=== PATIENT | female | born 1975 | race American Indian/Alaskan Native ===

== ENCOUNTER 2018-11-30 20:16 | Emergency (ER) | payer OTHER ==
--- NOTE | 2018-11-30 20:47 | Emergency Department Report ---
Blank Doc - Documentation Documentation: This is a 43-year-old female that presents with left leg pain and swelling. P loida was admitted with [place] for PE and DVT. Patient was discharged yesterday. Came to the ED for worsening left leg. This initial assessment/diagnostic orders/clinical plan/treatment(s) is/are subject to change based on patient's health status, clinical progression and re- assessment by fellow clinical providers in the ED. Further treatment and workup at subsequent clinical providers discretion. Patient/guardians urged not to elope from the ED as their condition may be serious if not clinically assessed and managed. Initial orders include: 1- Patient sent to MAIN ED for further evaluation and treatment 2- Labs 3- US Doppler 4- EKG 5- CXR
[2018-11-30 21:07] LABS: Basophils % (Auto) 0.8 % (0.0-1.8); Eosinophils # (Auto) 0.1 K/mm3 (0.0-0.4); Eosinophils % (Auto) 2.5 % (0.0-4.3); Hematocrit 41.5 % (30.3-42.9); Lymphocytes # (Auto) 1.1 K/mm3 (1.2-5.4); Lymphocytes % (Auto) 26.3 % (13.4-35.0); Mean Corpuscular HGB Conc 34 % (30-34); Mean Corpuscular Volume 91 fl (79-97); Monocytes # (Auto) 0.5 K/mm3 (0.0-0.8); Monocytes % (Auto) 10.5 % (0.0-7.3); Platelet Count 192 K/mm3 (140-440); Red Blood Count 4.58 M/mm3 (3.65-5.03); Red Cell Distribution Width 13.6 % (13.2-15.2)
[2018-11-30 21:16] LABS: INR 1.54 (0.87-1.13)
[2018-11-30 21:17] LABS: Partial Thromboplastin Time 29.7 Sec. (24.2-36.6)
[2018-11-30 21:29] LABS: BUN/Creatinine Ratio 4; Blood Urea Nitrogen 4 mg/dL (7-17); Calcium 8.7 mg/dL (8.4-10.2); Hemolysis Index 8
--- NOTE | 2018-11-30 22:03 | XRay Report ---
PROCEDURE: XR CHEST ROUTINE 2V TECHNIQUE: PA and lateral chest radiographs were obtained. HISTORY: Chest Pain COMPARISONS: None. FINDINGS: Heart: Normal. Mediastinum/Vessels: Normal. Lungs/Pleural space: Normal. Bony thorax: No acute osseous abnormality. IMPRESSION: Normal examination. This document is electronically signed by Fabrizio Olsen MD., November 30 2018 10:01:40 PM ET
--- NOTE | 2018-11-30 22:32 | Emergency Department Report ---
HPI - General Chief Complaint: Extremity Injury, Lower Time Seen by Provider: 11/30/18 20:39 - HPI HPI: 43-year-old Lebanese female presents to the emergency department with some swelling of the left lower extremity with known left leg DVT and also pulmonary embolism. The patient had left leg swelling started about one week ago. She went to [facility] where she had an ultrasound of the leg done that showed a "blood clot in my calf." She was having some shortness of breath at that time and had some type of imaging of the chest that showed a pulmonary embolism. The patient presents with her discharge paperwork confirming these diagnoses. She spent 2 days in that hospital as she was placed on IV heparin and then transition to Xarelto. She has been taking the anticoagulation compliantly. The patient came into the emergency department today because she says that her leg "swelled up again." She says that she had some shortness of breath earlier but that has since resolved. The patient thinks that the blood clots came on as she just recently gave about one month ago. ED Past Medical Hx - Past Medical History Previous Medical History?: Yes Hx Deep Vein Thrombosis: Yes Hx Tuberculosis: Yes Additional medical history: pneumonia, DVT, PE - Surgical History Past Surgical History?: Yes Additional Surgical History: left foot surgery for tumor removal, vaginal - Social History Smoking Status: Unknown if ever smoked Substance Use Type: None - Medications Home Medications: Home Medications Medication Instructions Recorded Confirmed Last Taken Type Albuterol Sulfate [Ventolin HFA] 2 puff IH Q4H PRN #1 hfa.aer.ad 07/23/13 Unknown Rx Azithromycin [Zithromax Z-ABBY] 250 mg PO DAILY #6 tab 07/23/13 Unknown Rx Prednisone 60 mg PO QDAY #15 tablet 07/23/13 Unknown Rx Benzonatate [Tessalon Perle] 200 mg PO TID PRN #20 capsule 07/24/13 Unknown Rx Cyclobenzaprine [Flexeril] 10 mg PO TID PRN #20 tablet 12/31/15 Unknown Rx Diclofenac Sodium 75 mg PO BID #20 tablet. 12/31/15 Unknown Rx ED Review of Systems ROS: Stated complaint: LEFT LEG BLOOD CLOT Other details as noted in HPI Comment: All other systems reviewed and negative Constitutional: denies: chills, fever Eyes: denies: eye pain, vision change ENT: denies: ear pain, throat pain Respiratory: shortness of breath. denies: cough Cardiovascular: edema. denies: chest pain, palpitations Gastrointestinal: denies: abdominal pain, vomiting Genitourinary: denies: dysuria, discharge Musculoskeletal: myalgia. denies: back pain Skin: denies: rash, lesions Neurological: denies: headache, weakness Physical Exam - Physical Exam Vital Signs: Vital Signs 11/30/18 11/30/18 20:40 22:16 Temperature 98.4 F Pulse Rate 73 Respiratory 20 18 Rate Blood Pressure 126/82 O2 Sat by Pulse 99 99 Oximetry Physical Exam: GENERAL: The patient is well-developed well-nourished. HEENT: Normocephalic. Atraumatic. Patient has moist mucous membranes. EYES: Extraocular motions are intact. Pupils are equal and reactive to light bilaterally. NECK: Supple. Trachea is midline. CHEST/LUNGS: Clear to auscultation. There is no respiratory distress noted. HEART/CARDIOVASCULAR: Regular. There is no tachycardia. There is no obvious murmur. ABDOMEN: Abdomen is soft, nontender. Patient has normal bowel sounds. There is no abdominal distention. SKIN: There is moderate left lower extremity swelling from the knee distally when compared with the right side. NEURO: The patient is awake, alert, and oriented. The patient is cooperative. The patient has no focal neurologic deficits. The patient has normal speech. MUSCULOSKELETAL: There is no tenderness or deformity. There is no limitation range of motion. +2 over 4 dorsalis pedis pulse of the left foot. ED Course Vital Signs 11/30/18 11/30/18 20:40 22:16 Temperature 98.4 F Pulse Rate 73 Respiratory 20 18 Rate Blood Pressure 126/82 O2 Sat by Pulse 99 99 Oximetry ED Medical Decision Making - Lab Data Result diagrams: 11/30/18 20:52 11/30/18 20:52 - Radiology Data Radiology results: image reviewed interpreted by me: Chest x-ray does not show any pneumothorax, pleural effusion, pneumonia or o bvious focal consolidation. - Medical Decision Making This patient presents to the emergency department for reevaluation of left leg swelling. However the patient has a known left lower extremity DVT and pulmonary embolism. The discharge instructions from [facility] due to confirmed the DVT and PE but cannot say the size or location. The patient does have some nonpitting swelling of the left distal lower extremity when compared to the right but she does appear to be neurovascularly intact. She says that she had some shortness of breath and/or back pain earlier in the day but that has resolved. Patient's labs have been unremarkable including a CBC, BMP, troponin. Chest x-ray did not show any focal consolidation, pneumothorax, pneumonia, pleural effusions, or any other acute process. Her labs have been unremarkable including no fever, no hypoxia or tachypnea or tachycardia. They are essentially normal. The patient is taking her anticoagulation and has been compliant. I recommended a CT angiography of the chest to evaluate the pulmonary emboli but the patient says that she is no longer having any shortness of breath or back pain and does not want this done at this time. I am unable to get a venous Doppler ultrasound this evening the patient has been given a prescription/motor to get the Doppler ultrasound done tomorrow morning in the [facility] imaging portion of the hospital. She has a known DVT but if it is growing or found to be extensive, a vascular consult thrombectomy could be considered. Otherwise she will remain on the anticoagulation and follow up with her primary care physician. She will return to the ER immediately with any development of chest pain, shortness of breath or with any acute distress. - Differential Diagnosis DVT, PE, pneumonia, bronchitis, venous stasis Critical Care Time: No Critical care attestation.: If time is entered above; I have spent that time in minutes in the direct care of this critically ill patient, excluding procedure time. ED Disposition Clinical Impression: History of DVT of lower extremity Pulmonary embolism Qualifiers: Pulmonary embolism type: unspecified Chronicity: unspecified Acute cor pulmonale presence: without acute cor pulmonale Qualified Code(s): I26.99 - Other pulmonary embolism without acute cor pulmonale Disposition: DC-01 TO HOME OR SELFCARE Is pt being admited?: No Condition: Stable Instructions: Pulmonary Embolism (GEN), Deep Venous Thrombosis (ED) Additional Instructions: Please follow-up with your primary care physician. I am giving you an order to return to the outpatient imaging center tomorrow for a repeat left leg ultrasound. Continue taking your Xarelto (anticoagulation. Return to the emergency department with any worsening of your symptoms or any acute distress. Referrals: Primary Care Physician, Your [Other] - [facility] Time of Disposition: 22:33
[2018-11-30 23:15] VITALS: BP 130/84
== END 2018-11-30 22:42 | disposition home or self-care (01) ==
LOC: ED 20:16
DX: I26.99 Other pulmonary embolism without acute cor pulmonale (principal); Z79.899 Other long term (current) drug therapy; Z88.6 Allergy status to analgesic agent; Z86.718 Personal history of other venous thrombosis and embolism
CPT/HCPCS: 36415; 71046; 80048; 84484; 84703; 85025; 85610; 85730; 93005; 93010

== ENCOUNTER 2019-10-01 18:09 | Observation (INO) | payer SELFPAY ==
--- NOTE | 2019-10-01 19:05 | Event Note ---
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 Further treatment and workup at subsequent clinical providers discretion. Patient/guardian urged not to elope from the ED as their condition may be serious if not clinically assessed and managed. Initial orders include: labs, EKG, UA, CT head
--- NOTE | 2019-10-01 19:51 | Cat Scan Report ---
CT HEAD WITHOUT CONTRAST INDICATION / CLINICAL INFORMATION: syncope, hit head, tingling left arm. TECHNIQUE: All CT scans at this location are performed using CT dose reduction for ALARA by means of automated e xposure control. COMPARISON: None available. FINDINGS: HEMORRHAGE: No evidence of intracranial hemorrhage or extra-axial fluid collection. EXTRA-AXIAL SPACES: Cortical sulci, sylvian fissures and basilar cisterns have an unremarkable appear ance. VENTRICULAR SYSTEM: The ventricular system is of normal size and configuration. CEREBRAL PARENCHYMA: No areas of abnormal brain parenchymal attenuation are identified. There is no i ndication of recent infarction. MIDLINE SHIFT OR HERNIATION: There is no mass effect. CEREBELLUM / BRAINSTEM: Brainstem and cerebellum have an unremarkable appearance. INTRACRANIAL VESSELS:No abnormalities are identified on this noncontrast head CT. ORBITS: visualized portions of the orbits have an unremarkable appearance. SOFT TISSUES of HEAD: No significant abnormality. CALVARIUM: Evaluation of bone windows reveals no abnormalities. PARANASAL SINUSES / MASTOID AIR CELLS: Paranasal sinuses are free from inflammatory mucosal disease. Mastoid air cells are normally pneumatized. IMPRESSION: 1. Normal head CT without contrast. Signer Name: Agustin Villalobos MD Signed: 10/01/2019 7:46 PM Workstation Name: [id number]
[2019-10-01] MEDS ORDERED: ACETAMINOPHEN 500 MG TAB PO ONE (20:40)
[2019-10-01] MEDS ORDERED: SODIUM CHLORIDE 0.9% 1000 ML 1,000 ML IV ONE (20:40)
--- NOTE | 2019-10-01 20:43 | Emergency Department Report ---
ED General Adult HPI - General Chief complaint: Syncope Stated complaint: PASSED OUT AT WORK YESTERDAY Time Seen by Provider: 10/01/19 19:02 Source: patient, RN notes reviewed, old records reviewed Mode of arrival: Ambulatory Limitations: No Limitations - History of Present Illness Initial comments: The patient is a 44-year-old female. The patient is not known to myself previously. She has a primary care doctor but cannot recall their name. She has a history of left lower extremity DVT and pulmonary embolism in 2019, and is supposed to be on systemic anticoagulation; Eliquis. 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 Prior to the event, she was not having physical pain, but she felt hot. On review of systems, she endorses left upper extremity numbness, intermittent, present for 4 days. She also endorses bilateral calf cramping and discomfort. She has an occipital headache from hitting her head. Prior to the event of syncope, did not have headache, neck pain, chest pain, abdominal pain, or e xertional shortness of breath. Apparently her DVT and pulmonary embolism are related to . -: Sudden Location: head, left, right, lower extremity Quality: aching Consistency: constant Improves with: rest Worsens with: movement - Related Data Previous Rx's Medication Instructions Recorded Last Taken Type Albuterol Sulfate [Ventolin HFA] 2 puff IH Q4H PRN #1 hfa.aer.ad 07/23/13 Unknown Rx Azithromycin [Zithromax Z-ABBY] 250 mg PO DAILY #6 tab 07/23/13 Unknown Rx Prednisone 60 mg PO QDAY #15 tablet 07/23/13 Unknown Rx Benzonatate [Tessalon Perle] 200 mg PO TID PRN #20 capsule 07/24/13 Unknown Rx Cyclobenzaprine [Flexeril] 10 mg PO TID PRN #20 tablet 12/31/15 Unknown Rx Diclofenac Sodium 75 mg PO BID #20 janice. 12/31/15 Unknown Rx Allergies Allergy/AdvReac Type Severity Reaction Status Date / Time codeine Allergy Intermediate Hives Verified 07/23/13 23:07 ED Review of Systems ROS: Stated complaint: PASSED OUT AT WORK YESTERDAY Other details as noted in HPI Constitutional: malaise. denies: fever Eyes: denies: eye discharge, vision change ENT: denies: congestion Respiratory: denies: cough Cardiovascular: syncope. denies: chest pain Gastrointestinal: denies: abdominal pain, hematemesis, melena, hematochezia Genitourinary: denies: dysuria Musculoskeletal: arthralgia, myalgia Skin: denies: lesions Neurological: headache, numbness, paresthesias ED Past Medical Hx - Past Medical History Previous Medical History?: Yes Hx Deep Vein Thrombosis: Yes Hx Tuberculosis: Yes Additional medical history: pneumonia, DVT, PE - Surgical History Past Surgical History?: No Additional Surgical History: left foot surgery for tumor removal, vaginal - Social History Smoking Status: Never Smoker Substance Use Type: None - Medications Home Medications: Home Medications Medication Instructions Recorded Confirmed Last Taken Type Albuterol Sulfate [Ventolin HFA] 2 puff IH Q4H PRN #1 hfa.aer.ad 07/23/13 Unknown Rx Azithromycin [Zithromax Z-ABBY] 250 mg PO DAILY #6 tab 07/23/13 Unknown Rx Prednisone 60 mg PO QDAY #15 tablet 07/23/13 Unknown Rx Benzonatate [Tessalon Perle] 200 mg PO TID PRN #20 capsule 07/24/13 Unknown Rx Cyclobenzaprine [Flexeril] 10 mg PO TID PRN #20 tablet 12/31/15 Unknown Rx Diclofenac Sodium 75 mg PO BID #20 tablet. 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 Absent: nystagmus - ENT ENT exam: Present: normal exam, normal orophraynx, mucous membranes moist, normal external ear exam - Neck Neck exam: Present: normal inspection, full ROM. Absent: tenderness, meningismus - Respiratory Respiratory exam: Present: normal lung sounds bilaterally. Absent: respiratory distress - Cardiovascular Cardiovascular Exam: Present: normal rhythm, bradycardia, normal heart sounds. Absent: systolic murmur, diastolic murmur, rubs, gallop - GI/Abdominal GI/Abdominal exam: Present: soft. Absent: distended, tenderness, guarding, rebound, rigid, pulsatile mass - Extremities Exam Extremities exam: Present: normal inspection, full ROM, other (2+ pulses noted in the bilateral upper and lower extremities. There is no palpable cord. negative Homans sign. Muscular compartments are soft. The pelvis is stable.). Absent: pedal edema, calf tenderness - Back Exam Back exam: Present: normal inspection, full ROM. Absent: tenderness, CVA tenderness (R), CVA tenderness (L), paraspinal tenderness, vertebral tenderness - Neurological Exam Neurological exam: Present: alert, oriented X3, other (There is no facial droop. The tongue is midline. Extraocular movements are intact bilaterally. There is 5 out of 5 strength in bilateral upper and lower extremities. Sensation is intact to light touch bilateral upper and lower extremities. There is no past- pointing. There is no pronator drift. There is normal lcit-qu-cxme. There is a normal gait.). Absent: motor sensory deficit - Psychiatric Psychiatric exam: Present: normal affect, normal mood - Skin Skin exam: Present: warm, dry, intact, normal color. Absent: rash ED Course Vital Signs 10/01/19 10/01/19 10/01/19 18:27 19:03 20:00 Temperature 98.2 F 98.2 F Pulse Rate 65 59 L 67 Respiratory 18 18 16 Rate Blood Pressure 148/94 148/94 119/71 O2 Sat by Pulse 100 100 99 Oximetry 10/01/19 10/01/19 10/01/19 20:15 20:30 20:45 Temperature Pulse Rate 66 66 61 Respiratory 9 L 12 14 Rate Blood Pressure 113/74 118/92 131/81 O2 Sat by Pulse 99 100 Oximetry 10/01/19 10/01/19 10/01/19 21:00 21:15 21:30 Temperature Pulse Rate 59 L 57 L 59 L Respiratory 15 12 13 Rate Blood Pressure 130/79 131/87 121/86 O2 Sat by Pulse 99 100 99 Oximetry 10/01/19 21:45 Temperature Pulse Rate 56 L Respiratory 16 Rate Blood Pressure 112/78 O2 Sat by Pulse 97 Oximetry - Reevaluation(s) Reevaluation #1: 10/01/19 21:20 Differential diagnosis, including but not limited to: Orthostasis, vagal event, structural cardiac disease, pulmonary embolism, peripheral neuropathy, TIA, radiculopathy, subacute stroke, intracranial injury, concussion Assessment and plan: 44-year-old female with a complaint of sudden unprovoked lo ss of consciousness yesterday, and 3 to 4 days of left upper extremity subjective decrease in sensation. She is afebrile with reassuring vital signs and clinically sober at this time. She has a GCS of 15, with NIH score of 0. She is currently not tachycardic, tachypneic or hypoxic Her extremity exam is not suggestive of DVT. Noncontrast CT scan of the brain negative for acute disease. There is no midline cervical spine pain or tenderness. Screening laboratory studies pending, patient will likely need to be admitted to the medical service for further evaluation. Not a TPA candidate given more than 4.5 hours of symptoms, and NIH score of 0 at this time. Does not need emergent endovascular imaging at this time, as her examination is not suggestive of a large vessel occlusion. We will treat her with fluids and Tylenol. Discussed plan of care with patient who verbalizes understanding. Reevaluation #2: 10/01/19 22:12 Patient resting comfortably, and in no acute distress. D-dimer negative. Remainder of laboratory studies are fairly unremarkable. Given complaint of left arm tingling and sensory change, unprovoked syncope, patient to be admitted to the medical service for further evaluation and management. Presented to hospital physician, Dr. Ribeiro who accepts to medical service ED Medical Decision Making - Lab Data Result diagrams: 10/01/19 20:21 10/01/19 20:21 Vital Signs 10/01/19 19:03 Temperature 98.2 F Pulse Rate 59 L Respiratory 18 Rate Blood Pressure 148/94 O2 Sat by Pulse 100 Oximetry Lab Results 10/01/19 10/01/19 Range/Units 20:21 20:21 WBC 3.6 L (4.5-11.0) K/mm3 RBC 4.33 (3.65-5.03) M/mm3 Hgb 14.1 (10.1-14.3) gm/dl Hct 41.2 (30.3-42.9) % MCV 95 (79-97) fl MCH 33 H (28-32) pg MCHC 34 (30-34) % RDW 15.3 H (13.2-15.2) % Plt Count 194 (140-440) K/mm3 Lymph % (Auto) 30.0 (13.4-35.0) % [place] % (Auto) 11.7 H (0.0-7.3) % Eos % (Auto) 1.6 (0.0-4.3) % Baso % (Auto) 1.1 (0.0-1.8) % Lymph # 1.1 L (1.2-5.4) K/mm3 [place] # 0.4 (0.0-0.8) K/mm3 Eos # 0.1 (0.0-0.4) K/mm3 Baso # 0.0 (0.0-0.1) K/mm3 Add Manual Diff Complete Seg Neutrophils % 55.6 (40.0-70.0) % Nucleated RBC % Not Reportable Seg Neutrophils # 2.1 (1.8-7.7) K/mm3 WBC Morphology Not Reportable Hypersegmented Neuts Not Reportable Hyposegmented Neuts Not Reportable Hypogranular Neuts Not Reportable Smudge Cells Not Reportable Toxic Granulation Not Reportable Toxic Vacuolation Not Reportable Dohle Bodies Not Reportable Pelger-Huet Anomaly Not Reportable Triston Rods Not Reportable Platelet Estimate Not Reportable Clumped Platelets Not Reportable Plt Clumps, EDTA Not Reportable Large Platelets Not Reportable Giant Platelets Not Reportable Platelet Satelliting Not Reportable Plt Morphology Comment Not Reportable RBC Morphology Not Reportable Dimorphic RBCs Not Reportable Polychromasia Not Reportable Hypochromasia Not Reportable Poikilocytosis Not Reportable Anisocytosis Not Reportable Microcytosis Not Reportable Macrocytosis Not Reportable Spherocytes Not Reportable Pappenheimer Bodies Not Reportable Sickle Cells Not Reportable Target Cells Not Reportable Tear Drop Cells Not Reportable Ovalocytes Not Reportable Helmet Cells Not Reportable Pena-Panguitch Bodies Not Reportable Jamul Rings Not Reportable Sibley Cells Not Reportable Bite Cells Not Reportable Crenated Cell Not Reportable Elliptocytes Not Reportable Acanthocytes (Spur) Not Reportable Rouleaux Not Reportable Hemoglobin C Crystals Not Reportable Schistocytes Not Reportable Malaria parasites Not Reportable Garett Bodies Not Reportable Hem Pathologist Commnt Not Reportable Sodium 136 L (137-145) mmol/L Potassium 3.9 (3.6-5.0) mmol/L Chloride 101.3 (98-107) mmol/L Carbon Dioxide 22 (22-30) mmol/L Anion Gap 17 mmol/L BUN 11 (7-17) mg/dL Creatinine 0.9 (0.7-1.2) mg/dL Estimated GFR > 60 ml/min BUN/Creatinine Ratio 12 % Glucose 95 (65-100) mg/dL Calcium 9.0 (8.4-10.2) mg/dL Phosphorus 2.30 L (2.5-4.5) mg/dL Magnesium 2.00 (1.7-2.3) mg/dL Total Bilirubin 0.50 (0.1-1.2) mg/dL AST 25 (5-40) units/L ALT 14 (7-56) units/L Alkaline Phosphatase 71 (35-129) units/L Total Creatine Kinase 102 (30-135) units/L Troponin T < 0.010 (0.00-0.029) ng/mL Total Protein 7.4 (6.3-8.2) g/dL Albumin 4.0 (3.9-5) g/dL Albumin/Globulin Ratio 1.2 % - EKG Data -: EKG Interpreted by Me EKG shows normal: sinus rhythm Rate: bradycardia - EKG Data 10/01/19 21:22 The EKG today shows a sinus rhythm, 68 bpm, normal axis, QTC 461 ms, there is some motion artifact. The EKG is abnormal, it is not consistent with ST elevation myocardial infarction. The EKG today appears to be grossly unchanged from prior EKG from November 2018. - Radiology Data Radiology results: pending, report reviewed, image reviewed Noncontrast CT scan of the brain is negative for acute disease Critical care attestation.: If time is entered above; I have spent that time in minutes in the direct care of this critically ill patient, excluding procedure time. ED Disposition Clinical Impression: Left arm numbness, Syncope, Noncompliance, History of pulmonary embolus (PE), History of DVT (deep vein thrombosis) Disposition: 09 OP ADMIT IP TO THIS HOSP Is pt being admited?: Yes Does the pt Need Aspirin: Yes Condition: Stable Instructions: Syncope (ED) Referrals: PRIMARY CARE,MD [Primary Care Provider] - 3-5 Days
[2019-10-01 20:44] LABS: Hematocrit 41.2 % (30.3-42.9); Hemoglobin 14.1 gm/dl (10.1-14.3); Mean Corpuscular HGB Conc 34 % (30-34); Mean Corpuscular Volume 95 fl (79-97); Platelet Count 194 K/mm3 (140-440); Red Blood Count 4.33 M/mm3 (3.65-5.03); Red Cell Distribution Width 15.3 % (13.2-15.2)
[2019-10-01 20:52] LABS: Basophils % (Auto) 1.1 % (0.0-1.8); Eosinophils # (Auto) 0.1 K/mm3 (0.0-0.4); Eosinophils % (Auto) 1.6 % (0.0-4.3); Lymphocytes # (Auto) 1.1 K/mm3 (1.2-5.4); Monocytes # (Auto) 0.4 K/mm3 (0.0-0.8); Monocytes % (Auto) 11.7 % (0.0-7.3)
[2019-10-01 21:06] LABS: Alanine Aminotransferase 14 units/L (7-56); BUN/Creatinine Ratio 12; Blood Urea Nitrogen 11 mg/dL (7-17); Hemolysis Index 10
[2019-10-01 21:41] LABS: INR 1.08 (0.87-1.13); Partial Thromboplastin Time 25.8 Sec. (24.2-36.6)
[2019-10-01] MEDS ORDERED: ASPIRIN 81 MG TAB CHEW PO ONE (22:15)
[2019-10-01] MEDS ORDERED: PROMETHAZINE 25 MG RECT SUPP PR PRN (22:58)
[2019-10-01] MEDS ORDERED: ACETAMINOPHEN 325 MG TAB PO PRN ×2 (22:58)
[2019-10-01] MEDS ORDERED: MAGNESIUM HYDROXIDE (MOM) ORAL LIQD UDC PO PRN (22:58)
[2019-10-01] MEDS ORDERED: ONDANSETRON 4 MG/2 ML INJ IV PRN ×2 (22:58)
[2019-10-01] MEDS ORDERED: METOCLOPRAMIDE 10 MG TAB PO PRN (22:58)
[2019-10-01] MEDS ORDERED: MORPHINE 2 MG/1 ML INJ IV PRN (22:58)
--- NOTE | 2019-10-01 23:10 | History and Physical Report ---
History of Present Illness Date of examination: 10/01/19 Date of admission: 10/01/2019 Chief complaint: Left arm numbness Syncope History of present illness: 44-year-old female with known history of DVT and pulmonary embolism in 2019 and who is supposed to be on Eliquis for anticoagulation presenting to the emergency room today complaining of loss of consciousness syncope at work sometime yesterday. Prior to the syncope and loss of consciousness she indicates she was feeling hot. She later presents in the emergency room today indicating that she has been having numbness in the left upper extremity. Numbness has been intermittent. She denies any difficulty with speech denies any difficulty with swallowing. No chest pain or shortness of breath, no fever or chills, no nausea or vomiting. Patient admits that she discontinued her anticoagulation without any specific instruction from her physician. Work-up in the emergency room so far has been negative however patient indicates that numbness in the left upper extremity has been on and off. Past History Past Medical History: other (H/OmDVT/PE, Pneumonia and TB in the past.) Past Surgical History: Other (Left foot surgery) Social history: smoking (Smokes tobacco occasionally.) Family history: diabetes, hypertension Medications and Allergies Allergies Allergy/AdvReac Type Severity Reaction Status Date / Time codeine Allergy Intermediate Hives Verified 07/23/13 23:07 Home Medications Medication Instructions Recorded Confirmed Last Taken Type Albuterol Sulfate [Ventolin HFA] 2 puff IH Q4H PRN #1 hfa.aer.ad 07/23/13 Unknown Rx Azithromycin [Zithromax Z-ABBY] 250 mg PO DAILY #6 tab 07/23/13 Unknown Rx Prednisone 60 mg PO QDAY #15 tablet 07/23/13 Unknown Rx Benzonatate [Tessalon Perle] 200 mg PO TID PRN #20 capsule 07/24/13 Unknown Rx Cyclobenzaprine [Flexeril] 10 mg PO TID PRN #20 tablet 12/31/15 Unknown Rx Diclofenac Sodium 75 mg PO BID #20 tablet. 12/31/15 Unknown Rx Review of Systems Constitutional: no fever, no chills Cardiovascular: no chest pain, no palpitations Respiratory: no cough, no shortness of breath Gastrointestinal: no nausea, no vomiting, no diarrhea Genitourinary Female: no dysuria, no hematuria Musculoskeletal: no neck pain, no low back pain Integumentary: no rash, no pruritis Neurological: numbness (left arm), syncope Exam - Constitutional Vitals: Temp Pulse Resp BP Pulse Ox 98.2 F 56 L 16 112/78 97 10/01/19 19:03 10/01/19 21:45 10/01/19 21:45 10/01/19 21:45 10/01/19 21:45 General appearance: Present: no acute distress, well-nourished - EENT Eyes: Present: PERRL, EOM intact ENT: hearing intact, clear oral mucosa, dentition normal - Neck Neck: Present: supple, normal ROM - Respiratory Respiratory effort: normal Respiratory: bilateral: CTA - Cardiovascular Rhythm: regular Heart Sounds: Present: S1 & S2 - Extremities Extremities: no ischemia, pulses intact, pulses symmetrical, No edema, Full ROM Peripheral Pulses: within normal limits - Abdominal General gastrointestinal: Present: soft, non-tender, non-distended - Integumentary Integumentary: Present: clear, warm, dry - Musculoskeletal Musculoskeletal: strength equal bilaterally - Psychiatric Psychiatric: appropriate mood/affect, intact judgment & insight, cooperative - Neurologic Neurologic: CNII-XII intact, moves all extremities Results - Labs CBC & Chem 7: 10/01/19 20:21 10/01/19 20:21 Labs: Abnormal lab results 10/01/19 10/01/19 Range/Units 20:21 20:21 WBC 3.6 L (4.5-11.0) K/mm3 MCH 33 H (28-32) pg RDW 15.3 H (13.2-15.2) % Merrick % (Auto) 11.7 H (0.0-7.3) % Lymph # 1.1 L (1.2-5.4) K/mm3 Sodium 136 L (137-145) mmol/L Phosphorus 2.30 L (2.5-4.5) mg/dL Assessment and Plan - Patient Problems (1) Left arm numbness Current Visit: Yes Status: Acute Plan to address problem: Etiology is unclear however patient will be worked up for TIA versus CVA. We will schedule patient for MRI of the brain and carotid Doppler. We will place a consult to neurology for further evaluation and recommendation. We will have patient be placed on daily aspirin. (2) Syncope Current Visit: Yes Status: Acute Plan to address problem: Etiology is unclear however patient will be monitored on telemetry. She will also be worked up for TIA versus CVA. We await results of carotid Doppler and echocardiogram. (3) Noncompliance Current Visit: Yes Status: Acute Plan to address problem: Patient is supposed to be on anticoagulation for history of DVT and pulmonary embolism. However she discontinued anticoagulation sometime last month without any specific instruction from a physician. Compliance with medication has been encouraged. (4) DVT prophylaxis Current Visit: Yes Status: Acute Plan to address problem: Patient placed on subcutaneous heparin. (5) Full code status Current Visit: Yes Status: Acute
[2019-10-02] MEDS ORDERED: HEPARIN 5,000 UNIT/1 ML VIAL SUB-Q SCH (06:00)
[2019-10-02 08:57] LABS: Basophils % (Auto) 0.9 % (0.0-1.8); Eosinophils # (Auto) 0.1 K/mm3 (0.0-0.4); Eosinophils % (Auto) 2.4 % (0.0-4.3); Hematocrit 38.7 % (30.3-42.9); Hemoglobin 13.2 gm/dl (10.1-14.3); Lymphocytes # (Auto) 1.2 K/mm3 (1.2-5.4); Lymphocytes % (Auto) 40.6 % (13.4-35.0); Mean Corpuscular HGB Conc 34 % (30-34); Mean Corpuscular Volume 95 fl (79-97); Monocytes # (Auto) 0.4 K/mm3 (0.0-0.8); Monocytes % (Auto) 12.6 % (0.0-7.3); Platelet Count 172 K/mm3 (140-440); Red Blood Count 4.08 M/mm3 (3.65-5.03); Red Cell Distribution Width 15.3 % (13.2-15.2)
[2019-10-02 09:07] LABS: INR 1.13 (0.87-1.13)
[2019-10-02 09:08] LABS: Partial Thromboplastin Time 27.1 Sec. (24.2-36.6)
[2019-10-02 09:15] LABS: BUN/Creatinine Ratio 10; Blood Urea Nitrogen 8 mg/dL (7-17); Calcium 8.3 mg/dL (8.4-10.2); Chol/HDL Ratio 3.44 %; HDL Cholesterol 67 mg/dL (40-59); Hemolysis Index 2; LDL Cholesterol,Direct 167 mg/dL (50-130)
--- NOTE | 2019-10-02 09:52 | Magnetic Resonance Report ---
MRI BRAIN WITHOUT CONTRAST INDICATION / CLINICAL INFORMATION: MAIN: stroke, LT ARM WEAKNESS PATIENT HAS MARSH RT EAR, UABLE TO REMOVE.. TECHNIQUE: Multisequence, multiplanar images were obtained. COMPARISON: CT head dated 10/01/2019 FINDINGS: CEREBRAL and CEREBELLAR HEMISPHERES: No evidence of mass or mass effect. No midline shift. No acute hemorrhage. No diffusion restriction to suggest acute infarct. No extra-axial fluid collection. VENTRICLES: Normal in size and configuration for age. VISUALIZED ORBITS: No significant abnormality. VISUALIZED PARANASAL SINUSES: No significant abnormality. ADDITIONAL FINDINGS: None. IMPRESSION: 1. No acute intracranial abnormality. Signer Name: Nitin Valles Jr, MD Signed: 10/02/2019 9:48 AM Workstation Name: [id number]
[2019-10-02] MEDS ORDERED: ASPIRIN 325 MG TAB PO SCH (10:00)
--- NOTE | 2019-10-02 13:07 | Discharge Summary ---
Providers - Providers Date of Admission: 10/01/19 22:15 Attending physician: ROBERTO CARLOS COY MD 10/01/19 22:59 Consult to Dietitian/Nutrition [CONS] Routine Physician Instructions: Reason For Exam: Reason for Consult: Nutrition Recommendations Reason for Consult: Diet education Occupational Therapy Evaluate and Treat [CONS] Routine Comment: Reason For Exam: Neuro deficits Physical Therapy Evaluation and Treat [CONS] Routine Comment: Reason For Exam: Neuro deficits 10/01/19 23:02 Speech Therapy Evaluation and Treat [CONS] Routine Reason For Exam: swallow eval 10/02/19 09:13 Consult to Physician [CONS] Routine Comment: Consulting Provider: AGAPITO SAHU Physician Instructions: Reason For Exam: cva Primary care physician: PROFESSOR OF LITERACY Hospitalization Condition: Stable Hospital course: 44-year-old man who presents to the hospital complaining of syncope. She reported that she had not eaten anything or drink anything and was standing for a prolonged amount of time at work. She had complained of some right upper extremity numbness in association with her syncopal episode. But by the time I saw the patient it had resolved. Patient had extensive work-up which included CT head, brain MRI, CT angiogram chest and lower extremity Dopplers, carotid Dopplers which were all unrevealing. The patient reported history of DVT in the left lower extremity in the past. She was concerned about it patient was reassured that testing for clots were all negative. She also had an echocardiogram which showed preserved EF and no si gnificant findings to suggest source of syncope. Patient was advised to advise prolonged standing, she was advised to avoid going to work without eating or drinking anything like she did this time. She verbalized understanding Preventative health counseling performed for 17 minutes -She was started on a statin for hyperlipidemia Diagnosis Transient autonomic imbalance Syncope Dehydration -Hyperlipidemia Disposition: DC-01 TO HOME OR SELFCARE Time spent for discharge: 35 minutes Core Measure Documentation - Palliative Care Palliative Care/ Comfort Measures: Not Applicable - Core Measures Any of the following diagnoses?: none Exam - Constitutional Vitals: Temp Pulse Resp BP Pulse Ox 98.0 F 61 17 100/56 98 10/02/19 05:21 10/02/19 05:21 10/02/19 05:21 10/02/19 05:21 10/02/19 05:21 General appearance: Present: no acute distress, well-nourished - EENT Eyes: Present: PERRL ENT: hearing intact, clear oral mucosa - Neck Neck: Present: supple, normal ROM - Respiratory Respiratory effort: normal Respiratory: bilateral: CTA - Cardiovascular Heart Sounds: Present: S1 & S2. Absent: rub, click - Extremities Extremities: pulses symmetrical, No edema Peripheral Pulses: within normal limits - Abdominal General gastrointestinal: Present: soft, non-tender, non-distended, normal bowel sounds Female genitourinary: Present: normal - Integumentary Integumentary: Present: clear, warm, dry - Musculoskeletal Musculoskeletal: gait normal, strength equal bilaterally - Psychiatric Psychiatric: appropriate mood/affect, intact judgment & insight - Neurologic Neurologic: CNII-XII intact, moves all extremities Plan Follow up with: PRIMARY CARE, [Primary Care Provider] - 3-5 Days Forms: Work/School Release Form Prescriptions: Pravastatin [Pravachol] 20 mg PO QHS #90 tablet
[2019-10-02 13:29] VITALS: BP 109/76
--- NOTE | 2019-10-02 15:02 | Vascular Lab Report ---
. DUPLEX DOPPLER LOWER EXTREMITY VEINS, BILATERAL INDICATION: Bilateral lower extremity edema and pain. TECHNIQUE: Duplex doppler imaging was performed through the veins of both lower extremities using ve nous compression and other maneuvers. COMPARISON: No relevant prior imaging study available. FINDINGS: Right Common femoral vein: Negative. Right Superficial femoral vein: Negative. Right Popliteal vein: Negative. Right Calf veins: Negative. Left Common femoral vein: Negative. Left Superficial femoral vein: Negative. Left Popliteal vein: Negative. Left Calf veins: Negative. Additional findings: None.. IMPRESSION: No sonographic evidence for DVT in either lower extremity. Signer Name: Nitin Valles Jr, MD Signed: 10/02/2019 2:58 PM Workstation Name: [id number]
--- NOTE | 2019-10-02 15:12 | Consultation ---
History of Present Illness Consult date: 10/02/19 Reason for Consult: Syncope Chief complaint: Syncope, left arm paresthesias History of present illness: Patient is a 44-year-old woman with history of DVT with PE, history of TB. She was previously taking Xarelto, however stopped it prematurely. She was supposed to be taking Xarelto for total of 9 months, however stopped it on her own after 3 to 4 months. She stopped it about 2 months ago. She states that she had a DVT and PE develop shortly after giving . 2 days ago while at work, the patient states that she had been standing up for about 1 hour, and began to feel very hot. After this, the patient passed out. She lost consciousness for about 1 to 2 minutes. No loss of bowel or bladder control, no convulsions, and no tongue biting were noted during the event. Patient woke up, and went home. She states that she had not eaten much at all during the day prior to that event. She then came to [facility] the next day for evaluation. Glucose levels were not checked after the event. She states that she began experiencing mild paresthesias in the left arm after the event, which resolved by today. Past History Past Medical History: other (H/OmDVT/PE, Pneumonia and TB in the past.) Past Surgical History: Other (Left foot surgery) Social history: smoking (Smokes tobacco occasionally.) Family history: diabetes, hypertension Medications and Allergies Allergies Allergy/AdvReac Type Severity Reaction Status Date / Time codeine Allergy Intermediate Hives Verified 07/23/13 23:07 Home Medications Medication Instructions Recorded Confirmed Last Taken Type Pravastatin [Pravachol] 20 mg PO QHS #90 tablet 10/02/19 Unknown Rx Active Meds: Active Medications Acetaminophen (Tylenol) 650 mg PO Q4H PRN PRN Reason: Pain MILD(1-3)/Fever >100.5/CHAUHAN Aspirin (Aspirin) 325 mg PO QDAY [facility] Last Admin: 10/02/19 10:27 Dose: 325 mg Documented by: Bisacodyl (Dulcolax) 10 mg NV QDAY PRN PRN Reason: Constipation Heparin Sodium (Porcine) (Heparin) 5,000 unit SUB-Q Q8HR [facility] Last Admin: 10/02/19 06:12 Dose: 5,000 unit Documented by: Magnesium Hydroxide (Milk Of Magnesia) 30 ml PO Q4H PRN PRN Reason: Constipation Metoclopramide HCl (Reglan) 10 mg PO Q6H PRN PRN Reason: Nausea And Vomiting Morphine Sulfate (Morphine) 2 mg IV Q4H PRN PRN Reason: Pain, Moderate (4-6) Ondansetron HCl (Zofran) 4 mg IV Q8H PRN PRN Reason: Nausea And Vomiting Promethazine HCl (Phenergan) 25 mg NV Q6H PRN PRN Reason: Nausea And Vomiting Sodium Chloride (Sodium Chloride Flush Syringe 10 Ml) 10 ml IV BID [place] Last Admin: 10/02/19 10:27 Dose: 10 ml Documented by: Sodium Chloride (Sodium Chloride Flush Syringe 10 Ml) 10 ml IV PRN PRN PRN Reason: LINE FLUSH Review of Systems All systems: negative Neurological: parathesias, syncope Physical Examination - Vital Signs Vital Signs: Vital Signs Temp Pulse Resp BP Pulse Ox 98.2 F 65 18 148/94 100 10/01/19 18:27 10/01/19 18:27 10/01/19 18:27 10/01/19 18:27 10/01/19 18:27 - Physical Exam Narrative exam: Patient is alert, awake, oriented x4, follows complex commands. PERRL, EOMI, VF F, tongue midline, bilaterally intact to LT, no facial weakness noted. 5/5 strength in all extremities. Bilaterally intact light touch. Bilaterally intact to FTN and HTS. 2+ reflexes throughout. No dysarthria or aphasia noted. - Constitutional General appearance: comfortable - EENT EENT: Present: ATNC, PERRL, mucous membranes moist, hearing intact, vision intact - Respiratory Respiratory: Present: lungs clear, normal breath sounds - Cardiovascular Cardiovascular: Present: regular rate, normal S1, normal S2 Extremities: Present: no clubbing, cyanosis, no inflammation - Gastrointestinal Gastrointestinal: Present: normoactive bowel sounds, soft, non-tender - Integumentary Integumentary: Present: normal - Musculoskeletal Musculoskeletal: Present: no fluid collection, no pain - Psychiatric Psychiatric: Present: mood/affect appropriate - Level of Consciousness 1a. Level of Consciousness: alert/keenly responsive - LOC Questions 1b. LOC Questions: answers both correctly - LOC Command 1c. LOC Commands: performs tasks correctly - Best Gaze 2. Best Gaze: normal - Visual 3. Visual: no visual loss - Facial Palsy 4. Facial Palsy: normal symmetrical movement - Motor Arm 5a. Motor Arm Left: no drift 5b. Motor Arm Right: no drift - Motor Leg 6a. Motor Leg Left: no drift 6b. Motor Leg Right: no drift - Limb Ataxia 7. Limb Ataxia: absent - Sensory 8. Sensory: normal - Best Language 9. Best Language: no aphasia - Dysarthria 10. Dysarthria: normal - Extinction and Inattention 11. Extinction/Inattention: no abnormality - Scoring Total Score: 0 Stroke Severity: No Stroke Symptoms Results - Laboratory Findings CBC and BMP: 10/02/19 08:26 10/02/19 08:26 Abnormal Lab Findings: Abnormal Labs 10/01/19 10/01/19 10/02/19 20:21 20:21 08:26 WBC 3.6 L 3.0 L MCH 33 H RDW 15.3 H 15.3 H Lymph % (Auto) 40.6 H Pershing % (Auto) 11.7 H 12.6 H Lymph # 1.1 L Seg Neutrophils # 1.3 L Sodium 136 L Carbon Dioxide Calcium Phosphorus 2.30 L Cholesterol LDL Cholesterol Direct HDL Cholesterol 10/02/19 08:26 WBC MCH RDW Lymph % (Auto) Pershing % (Auto) Lymph # Seg Neutrophils # Sodium Carbon Dioxide 21 L Calcium 8.3 L Phosphorus Cholesterol 231 H LDL Cholesterol Direct 167 H HDL Cholesterol 67 H Assessment and Plan Patient is a 44-year-old woman with history of DVT with PE, history of TB, who presents after syncopal episode. Patient's clinical findings, it is likely that the patient has had a vasovagal episode, as she was experiencing sensation of feeling very hot prior to losing consciousness. The description of the event does not sound like a typical seizure. However, a TIA is in the differential diagnosis given that the patient has a history of DVT with PE, and is not been on anticoagulation. Plan: 1. Vasovagal syncope versus TIA: - MRI brain: No acute abnormality. -MRA head: No significant stenosis. - CT head: No acute abnormality. -Carotid ultrasound: No significant stenosis. - Echo: Pending - Cont. ASA -If indicated per primary team, okay to restart patient on Xarelto for history of DVT. As there is no evidence of infarct on MRI brain, there is low risk of hemorrhagic conversion. If plan is to start Xarelto, can stop aspirin. - Cont. statin. LDL goal <70 - Telemetry monitoring while in house - PT/OT/ST - DVT Ppx: Recommend lovenox -Orthostatic vital signs not indicated of orthostatic hypotension. 2. Hypertension: - Recommend BP goal of normotension, as there is no evidence of infarct on MRI. - Will continue to monitor patient. Thank you for allowing me to take part in the care of this patient. Eduard Franco MD Neurology
--- NOTE | 2019-10-02 15:16 | Vascular Lab Report ---
"DUPLEX DOPPLER ULTRASOUND CAROTID, BILATERAL INDICATION: stroke. FINDINGS: RIGHT CAROTID: No significant atherosclerotic plaque. Right CCA velocity: 87 cm/sec. Right ICA peak systolic velocity: 85 cm/sec. ICA/CCA PSV Ratio: 1. Right Vertebral Artery: Antegrade flow. LEFT CAROTID: No significant atherosclerotic plaque. Left CCA velocity: 86 cm/sec. Left ICA peak systolic velocity: 81 cm/sec. ICA/CCA PSV Ratio: .9. Left Vertebral Artery: Antegrade flow. IMPRESSION: 1. Right Internal Carotid Artery: Less than 50% diameter stenosis. 2. Left Internal Carotid Artery: Less than 50% diameter stenosis. Velocity criteria are extrapolated from diameter data as defined by the Society of Radiologists in Ul trasound Consensus Conference, Radiology 2003; 229;340-346. Degree of Stenosis (%) || ICA PSV (cm/sec) || Plaque estimate (%) || ICA/CCA PSV Ratio Normal <125 None <2.0 <50 <125 <50 <2.0 50-69 125-230 50 2.0-4.0 70 but less than 100 >230 50 >4.0 Near occlusion High, low, or none visible variable Total occlusion None visible; no lumen N/A Signer Name: Conor Issa MD Signed: 10/02/2019 3:12 PM Workstation Name: [id number]"
--- NOTE | 2019-10-02 15:40 | Magnetic Resonance Report ---
MRA HEAD WITHOUT CONTRAST HISTORY: CVA, right arm weakness COMPARISON: None. TECHNIQUE: Routine MRA of the head is performed. 3-D/MIP reformats postprocessed. CONTRAST: None. FINDINGS: Intracranial vertebral arteries: No significant abnormality. Basilar artery: No significant abnormality. Posterior cerebral arteries: No significant abnormality. Intracranial internal carotid arteries: No significant abnormality. Anterior cerebral arteries: No significant abnormality. Middle cerebral arteries: No significant abnormality. Additional findings: Small bilateral posterior communicating arteries are noted. IMPRESSION: 1. No large vessel occlusion, stenosis or aneurysm. Signer Name: Nitin Valles Jr, MD Signed: 10/02/2019 10:52 AM Workstation Name: [id number]
--- NOTE | 2019-10-02 16:15 | Cat Scan Report ---
CT angio chest INDICATION / CLINICAL INFORMATION: syncope. TECHNIQUE: Axial CT images were obtained after injection of opaque 350, 100 cc IV contrast using CTA protocol. 3 plane MIP / 3D reconstructions were produced. All CT scans at this location are performed using CT d ose reduction for ALARA by means of automated exposure control. COMPARISON: None available. FINDINGS: The lungs contain no mass, infiltrate or pleural fluid. Negative for mediastinal mass or adenopathy. No aneurysm, dissection or pulmonary embolus. Imaging of the upper abdomen is unremarkable. IMPRESSION: Negative for pulmonary embolus or pneumonia. Signer Name: Rodrick Porter MD Signed: 10/02/2019 4:11 PM Workstation Name: [id number]
== END 2019-10-02 16:18 | disposition home or self-care (01) ==
LOC: ED 18:09 → 3A 22:15
PROVIDERS: ADMIT Internal Medicine Geriatric Medicine; ATTEND Internal Medicine
DX: R55 Syncope and collapse (principal); R20.0 Anesthesia of skin; F17.200 Nicotine dependence, unspecified, uncomplicated; Z86.711 Personal history of pulmonary embolism; Z86.718 Personal history of other venous thrombosis and embolism; Z91.19 Patient's noncompliance with other medical treatment and regimen
CPT/HCPCS: 36415; 70450; 70544; 70551; 71275; 80048; 80053; 80061; 82550; 83735; 84100; 84443; 84484; 84702; 85007; 85025; 85379; 85610; 85730; 93005; 93010; 93306; 93880; 93970; 96360; 96372; 99285; G0378; J1644; J7030; Q9967

== ENCOUNTER 2020-05-08 18:08 | Emergency (ER) | payer SELFPAY ==
[2020-05-08 18:30] VITALS: BP 121/81
[2020-05-08 21:42] LABS: Alanine Aminotransferase 14 units/L (7-56); Albumin 3.9 g/dL (3.9-5); BUN/Creatinine Ratio 5; Blood Urea Nitrogen 4 mg/dL (7-17); Hemolysis Index 1
[2020-05-08 23:21] LABS: Hematocrit 43.7 % (30.3-42.9); Hemoglobin 15.1 gm/dl (10.1-14.3); Mean Corpuscular Volume 97 fl (79-97); Red Blood Count 4.53 M/mm3 (3.65-5.03)
[2020-05-08 23:22] LABS: Eosinophils % (Auto) 0.3 % (0.0-4.3); Lymphocytes % (Auto) 12.2 % (13.4-35.0); Mean Corpuscular HGB Conc 35 % (30-34); Monocytes % (Auto) 12.5 % (0.0-7.3); Platelet Count 205 K/mm3 (140-440); Red Cell Distribution Width 13.5 % (13.2-15.2)
[2020-05-08 23:23] LABS: Basophils % (Auto) 0.3 % (0.0-1.8); Lymphocytes # (Auto) 0.7 K/mm3 (1.2-5.4); Monocytes # (Auto) 0.7 K/mm3 (0.0-0.8)
== END 2020-05-08 22:19 | disposition left against medical advice (07) ==
LOC: ED 18:08
DX: R10.9 Unspecified abdominal pain (principal); Z53.21 Procedure and treatment not carried out due to patient leaving prior to being seen by health care provider
CPT/HCPCS: 36415; 80053; 83690; 84703; 85025